=== PATIENT | female | born 2000 ===

== ENCOUNTER → 2023-02-26 | Outpatient (CLI) | payer OTHER ==
[2023-02-26 16:52] LABS: BASOPHILS ABSOLUTE AUTO 0.08 K/mm3 (0.00-0.23); BASOPHILS PERCENT AUTO 1 % (0-2); EOSINOPHILS ABSOLUTE AUTO 0.67 K/mm3 (0.00-0.68); EOSINOPHILS PERCENT AUTO 7 % (0-6); Hematocrit 39.2 % (33.0-51.0); Hemoglobin 13.3 g/dL (11.5-16.0); IMMATURE GRAN ABSOLUTE AUTO 0.03 K/mm3 (0.00-0.10); IMMATURE GRAN PERCENT AUTO 0 % (0-1); LYMPHOCYTES ABSOLUTE AUTO 4.18 K/mm3 (0.84-5.20); LYMPHOCYTES PERCENT AUTO 44 % (21-46); MONOCYTES ABSOLUTE AUTO 0.52 K/mm3 (0.16-1.47); MONOCYTES PERCENT AUTO 6 % (4-13); Mean Corpuscular HGB Conc 33.9 g/dL (31.5-36.5); Mean Corpuscular Volume 83 fL (80-100); Mean Platelet Volume 11.5 fL (9.1-12.4); NEUTROPHILS ABSOLUTE AUTO 4.05 K/mm3 (1.96-9.15); NEUTROPHILS PERCENT AUTO 43 % (41-73); Platelet Count 266 K/mm3 (150-400); RDW Coefficient Variation 12.1 % (11.7-14.2); RDW Standard Deviation 36.7 fL (35.1-46.3); Red Blood Cell Count 4.75 M/mm3 (3.80-5.20); White Blood Cell Count 9.53 K/mm3 (4.00-11.30)
[2023-02-26 17:56] LABS: Albumin/Globulin Ratio 1.2 (0.8-1.8); Bilirubin, Total 0.5 mg/dL (0.1-1.0); Bun/Creatinine Ratio 15.8 (12.0-20.0); Calcium, Blood 9.2 mg/dL (8.5-10.1); Creatinine, Blood 0.7 mg/dL (0.40-1.00); Globulin, Blood 3.3 g/dL (2.2-4.0); Potassium, Blood 3.9 mmol/L (3.5-5.5); Total Protein, Blood 7.3 g/dL (6.4-8.2)
[2023-02-27 08:13] LABS: HIV AB/P24 AG SCREEN Non Reactive (Non Reactive)
[2023-02-27 08:13] LABS: Candida species (DNA Probe) Negative (NEGATIVE); G. vaginalis (DNA Probe) Negative (NEGATIVE); T. vaginalis (DNA Probe) Negative (NEGATIVE)
[2023-02-28 04:09] LABS: CHLAMYDIA TRACHOMATIS, NAA Negative (Negative)
== END | disposition home or self-care (01) ==
LOC: LAB SHORT 11:50 → LAB 11:50
PROVIDERS: Family Medicine
DX: Z00.00 Encounter for general adult medical examination without abnormal findings (principal)
CPT/HCPCS: 80053; 85025; 87389; 87480; 87491; 87510; 87591; 87660; G0123

== ENCOUNTER → 2023-06-18 | Outpatient (CLI) | payer OTHER ==
[2023-06-20 04:58] LABS: ANTI-NUCLEAR AB ANA,IGG ELISA None Detected (None Detected)
[2023-06-20 05:07] LABS: CYCLIC CITRULLINATED PEP,IGG/A 4 Units (0-19)
[2023-06-20 19:31] LABS: DEAMIDATED GLIADIN PEPTIDE,IGA <0.72 FLU (0.00-4.99); TISSUE TRANSGLUTAMINAS TTG,IGA <1.02 FLU (0.00-4.99)
[2023-06-21 06:16] LABS: DEAMIDATED GLIADIN PEPTIDE,IGG <0.56 FLU (0.00-4.99); TISSUE TRANSGLUTAMINASE AB,IGG <0.82 FLU (0.00-4.99)
== END ==
LOC: LAB SHORT 15:03 → LAB 15:03
PROVIDERS: Family Medicine
DX: K13.70 Unspecified lesions of oral mucosa (principal)
CPT/HCPCS: 85651; 86038; 86140; 86200; 86258; 86364; 86430